=== PATIENT | male | born 1945 | race Caucasian/White ===

== ENCOUNTER 2020-08-12 19:29 | Emergency (ER) | payer MEDICARE ==
[~2020-08-12] VITALS: Ht 172.7 cm; Wt 86.4 kg
[2020-08-12 20:47] LABS: BASO # 0.1 (0.0-0.2); BASO % 0.3 % (0.0-2.0); EOS # 0.1 (0.0-0.7); EOS % 0.8 % (0-4.0); GRAN # 12.3 (1.4-6.5); GRAN % 81.3 % (42.2-75.2); HEMATOCRIT 42.9 % (42.0-52.0); HEMOGLOBIN 14.9 g/dl (13.5-18.0); LYMPH % 13.3 % (20.0-51.0); MEAN CELL VOLUME 100 fl (80.0-100.0); MEAN CORPUSCULAR HEMOGLOBIN 35 pg (27.0-31.0); MEAN CORPUSCULAR HGB CONC 35 g/dl (33.0-37.0); MEAN PLATELET VOLUME 10.2 fl (7.4-10.4); MONO # 0.6 (0.1-0.6); PLATELET COUNT 236 K/mm3 (130-400); RED BLOOD COUNT 4.28 M/mm3 (4.20-5.60); REDCELL DISTRIBUTION WIDTH-CV 13.2 % (11.5-14.5)
[2020-08-12 20:53] LABS: PROTHROMBIN TIME 11.5 SECONDS (9.7-12.8)
[2020-08-12 20:55] LABS: PARTIAL THROMBOPLASTIN TIME 28.6 SECONDS (26.0-37.0)
[2020-08-12 21:01] LABS: ALANINE AMINOTRANSFERASE 22 U/L (4-49); ALBUMIN 4.1 gm/dL (3.5-5.0); ALKALINE PHOSPHATASE 78 U/L (50-136); ANION GAP 10 mmol/L (7-16); AST,SGOT 33 U/L (15-37); BILIRUBIN,TOTAL 0.8 mg/dL (0.0-1.0); BLOOD UREA NITROGEN 16 mg/dL (9-20); CARBON DIOXIDE 23 mmol/L (22-30); CHLORIDE 104 mmol/L (98-107); CREATININE, serum 0.75 (0.66-1.25); GLUCOSE 159 mg/dL (74-106); LIPASE 98 U/L (23-300); POTASSIUM 3.9 mmol/L (3.4-5.0); SODIUM 136 mmol/L (137-145); TOTAL PROTEIN 6.9 gm/dL (6.4-8.2)
[2020-08-12 21:12] LABS: ALCOHOL(ethanol),MEDICAL < 10 mg/dL
[2020-08-12 21:13] LABS: TROPONIN-I < 0.012 ng/mL (0.000-0.035)
[2020-08-12 21:55] VITALS: BP 109/69; PULSE 77; TEMP 97.8
== END 2020-08-12 22:05 | disposition short-term general hospital (02) ==
LOC: COL.ER 19:29
PROVIDERS: Emergency Medicine
DX: S06.5X0A Traumatic subdural hemorrhage without loss of consciousness, initial encounter (principal); S02.119A Unspecified fracture of occiput, initial encounter for closed fracture; W01.198A Fall on same level from slipping, tripping and stumbling with subsequent striking against other object, initial encounter
CPT/HCPCS: J1953; J2405